=== PATIENT | female | born 1995 | race Caucasian/White ===

== ENCOUNTER 2018-03-19 23:45 | Emergency (ER) | payer SELFPAY ==
[2018-03-20] MEDS ORDERED: Ibuprofen 200 MG TAB ONE (01:07)
--- NOTE | 2018-03-20 08:15 | RAD ---
LEFT ANKLE THREE VIEWS: HISTORY: Left ankle pain. FINDINGS: Ankle mortise and talar dome are intact. Projecting just medial to the tip of the lateral malleolus, on the oblique view, is an oval, 0.6 cm, well corticated ossification. No displaced fractures are e vident. 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 If symptoms are referable to the lateral ankle, please consider immobilization and short-term radiog raphic followup. POS: TRISH
== END 2018-03-20 01:13 | disposition home or self-care (01) ==
LOC: ERS 23:45
DX: S93.402A Sprain of unspecified ligament of left ankle, initial encounter (principal); W18.30XA Fall on same level, unspecified, initial encounter

== ENCOUNTER 2018-08-07 04:23 | Emergency (ER) | payer SELFPAY | END 2018-08-07 05:58 | disposition home or self-care (01) | LOC: ERS 04:23 | DX: J02.0 Streptococcal pharyngitis (principal) | CPT/HCPCS: 87430; 99283 ==